=== PATIENT | female | born 1955 | race Caucasian/White ===

== ENCOUNTER 2020-07-21 22:30 | Emergency (ER) | payer MEDICARE, OTHER ==
[2020-07-21] MEDS ORDERED: Diltiazem 25 MG/5 ML SDV IVPUSH ONE (23:21)
[2020-07-22] MEDS ORDERED: Ketorolac 30 MG/ML SDV IVPUSH ONE (00:10)
--- NOTE | 2020-07-22 00:16 | EDM.PDOC ---
ED HPI GENERAL MEDICAL PROBLEM - General Chief Complaint: General Stated Complaint: high bp Time Seen by Provider: 07/21/20 23:00 Source of Information: Reports: Patient History Limitations: Reports: No Limitations - History of Present Illness INITIAL COMMENTS - FREE TEXT/NARRATIVE: c/o inc'd BP pt with gastric bypass surgery 04/30, has lost 40 lbs was on lisinopril, hctz, amlodipine prior to surgery was changed to metoprolol 25 mg/d after surgery, which was inc'd to 25 mg BID by PCP Nandini Jones in the office 4d ago BP has continued to be inc'd, 190/90 in office of chiropractor yesterday, was 184/70 at home this evening BP 196/75 on arrival to ED, did come down to 166/62 after dilt 20 mg IV, HR dec'd 68 to 63 pt with tension WILKINS at R frontal area x 5w, better after the dilt, as the IV had been started, she was additional given Toradol 30 mg IV for the WILKINS pt had ankle edema which was a mild contraindication for restarting the amlodipine, as the diltiazem may help with her WILKINS and should be tolerated in a low dose, it was started as a 2nd med, which may be needed only temporarily as she continues to loss wt there is a component of white coat hypertension altho there is no inc'd risk of running a low BP pt lives with a private investigator, able to check her BP at home, agreed to f/u with her PCP no labs in 2.5m which were checked, renal function wnl, glucose 112 and decreasing headache Pain Score (Numeric/FACES): 6 - Related Data Allergies Allergy/AdvReac Type Severity Reaction Status Date / Time No Known Allergies Allergy Verified 07/21/20 22:52 Home Meds: Home Meds DULoxetine [Cymbalta] 60 mg PO DAILY 07/21/20 [History] Metoprolol Succinate [Toprol XL] 25 mg PO BID 07/21/20 [History] Pravastatin [Pravachol] 40 mg PO DAILY 07/21/20 [History] RABEprazole Sodium [Aciphex] 20 mg PO DAILY 07/21/20 [History] Ustekinumab [Stelara] 90 mg SQ ASDIRECTED 07/21/20 [History] traZODone 75 mg PO BEDTIME 07/21/20 [History] dilTIAZem HCL [Diltiazem 24Hr ER] 120 mg PO DAILY #14 cap.sa.24h 07/22/20 [Rx] Past Medical History Cardiovascular History: Reports: High Cholesterol, Hypertension Gastrointestinal History: Reports: GERD Psychiatric History: Reports: Anxiety, Depression Social & Family History - Tobacco Use Tobacco Use Status *Q: Former Tobacco User Used Tobacco, but Quit: Yes Month/Year Tobacco Last Used: 2019 ED ROS GENERAL - Review of Systems Review Of Systems: See Below Constitutional: Reports: No Symptoms HEENT: Reports: No Symptoms Respiratory: Reports: No Symptoms Cardiovascular: Reports: No Symptoms Endocrine: Reports: No Symptoms GI/Abdominal: Reports: No Symptoms : Reports: No Symptoms Musculoskeletal: Reports: No Symptoms Skin: Reports: No Symptoms Neurological: Reports: Headache Psychiatric: Reports: No Symptoms Hematologic/Lymphatic: Reports: No Symptoms Immunologic: Reports: No Symptoms ED EXAM, GENERAL - Physical Exam Exam: See Below Exam Limited By: No Limitations General Appearance: Alert, WD/WN, Other (mild anxiety) Eye Exam: Bilateral Eye: EOMI, PERRL Nose: Normal Inspection Throat/Mouth: Normal Inspection, Normal Lips, Normal Voice, No Airway Compromise Head: Atraumatic, Normocephalic Neck: Normal Inspection, Supple, Non-Tender, Full Range of Motion Respiratory/Chest: No Respiratory Distress, Lungs Clear, Normal Breath Sounds, No Accessory Muscle Use, Chest Non-Tender Cardiovascular: Normal Peripheral Pulses, Regular Rate, Rhythm, No Murmur, Other (trace pretib edema b/l, symmetric) GI/Abdominal: Soft, Non-Tender Back Exam: Normal Inspection, Full Range of Motion Extremities: Normal Inspection, Normal Range of Motion, Non-Tender Neurological: Alert, Oriented, CN II-XII Intact, Normal Cognition, No Motor/Sensory Deficits Psychiatric: Normal Affect, Normal Mood Skin Exam: Warm, Dry, Intact, Normal Color, No Rash Lymphatic: No Adenopathy Course - Vital Signs Last Recorded V/S: Last Vital Signs Temp 36.6 C 07/21/20 22:30 Pulse 63 07/21/20 23:59 Resp 16 07/21/20 22:30 BP 166/62 H 07/21/20 23:59 Pulse Ox 98 07/21/20 22:30 - Orders/Labs/Meds Orders: Active Orders 24 hr Category Date Time Status Ketorolac [Toradol] Med 07/22/20 00:10 Once 30 mg IVPUSH ONETIME ONE Labs: Laboratory Tests 07/21/20 07/21/20 Range/Units 23:20 23:20 WBC 9.1 (3.0-10.3) x10-3/uL RBC 4.48 (3.60-5.20) x10(6)uL Hgb 12.6 (11.4-15.5) g/dL Hct 39.3 (34.2-48.2) % MCV 87.8 (76.7-100.5) fL MCH 28.1 (23.9-33.9) pg MCHC 32.0 (31.9-34.8) g/dL RDW 15.2 (12.3-16.5) % Plt Count 284 (151-488) x10(3)uL MPV 8.5 (7.1-12.4) fL Neut % (Auto) 44.1 (30.8-76.2) % Lymph % (Auto) 42.2 (18.4-52.1) % Dubois % (Auto) 8.0 (4.4-15.7) % Eos % (Auto) 5.1 (0.6-8.1) % Baso % (Auto) 0.6 (0.2-1.5) % Neut # (Auto) 4.0 (1.5-6.3) x10-3/uL Lymph # (Auto) 3.8 (1.0-4.4) x10-3/uL Dubois # (Auto) 0.7 (0.3-1.0) x10-3/uL Eos # (Auto) 0.5 (0.0-0.8) x10-3/uL Baso # (Auto) 0.1 (0.0-0.1) x10-3/uL Sodium 145 (135-145) mmol/L Potassium 4.1 (3.5-5.3) mmol/L Chloride 106 (100-110) mmol/L Carbon Dioxide 30 (21-32) mmol/L BUN 15 (7-18) mg/dL Creatinine 0.9 (0.55-1.02) mg/dL Est Cr Clr Drug Dosing 51.55 mL/min Estimated GFR (MDRD) > 60 (>60) BUN/Creatinine Ratio 16.7 (9-20) Glucose 112 (80-116) mg/dL Calcium 8.1 L (8.6-10.2) mg/dL Total Bilirubin 0.3 (0.1-1.3) mg/dL AST 63 H (5-25) IU/L ALT 79 H (12-36) U/L Alkaline Phosphatase 117 H (56-112) IU/L Total Protein 6.3 (6.0-8.0) g/dL Albumin 3.3 (3.2-4.6) g/dL Globulin 3.0 g/dL Albumin/Globulin Ratio 1.1 Meds: Medications Discontinued Medications Generic Name Dose Route Start Last Admin Trade Name Freq PRN Reason Stop Dose Admin Diltiazem HCl 20 mg 07/21/20 23:21 07/21/20 23:34 Diltiazem 25 Mg/5 Ml Sdv IVPUSH 07/21/20 23:22 20 mg ONETIME ONE Administration Departure - Departure Time of Disposition: 00:11 Disposition: Home, Self-Care 01 Condition: Good Clinical Impression: Elevated blood pressure reading with diagnosis of hypertension, Tension headache - Discharge Information *PRESCRIPTION DRUG MONITORING PROGRAM REVIEWED*: Not Applicable *COPY OF PRESCRIPTION DRUG MONITORING REPORT IN PATIENT DIMITRI: Not Applicable Prescriptions: dilTIAZem HCL [Diltiazem 24Hr ER] 120 mg PO DAILY #14 cap.sa.24h Instructions: Managing Your Hypertension, Tension Headache, Adult, [id number] Referrals: Crystal Jones NP [Primary Care Provider] - Additional Instructions: Continue metoprolol 25 mg 1 tab 2 times a day. Add diltiazem ED 120 mg 1 tab daily. Check your blood pressure 2 times a day, record the reading, and take with you to your next visit to your PCP. See Nandini Jones in 5 days for further instructions. For headache, continue acetaminophen 325 mg 2 tabs every 4-6 hours as needed. Sepsis Event Note (ED) - Evaluation Sepsis Screening Result: No Definite Risk - Focused Exam Vital Signs: Vital Signs Temp Pulse Resp BP Pulse Ox 07/21/20 23:59 63 166/62 H 07/21/20 23:48 63 165/57 H 07/21/20 23:38 78 154/62 H 07/21/20 23:36 72 165/59 H 07/21/20 23:33 74 173/77 H 07/21/20 22:30 36.6 C 67 16 196/75 H 98 - My Orders Last 24 Hours: My Active Orders 07/22/20 00:10 Ketorolac [Toradol] 30 mg IVPUSH ONETIME ONE - Assessment/Plan Last 24 Hours: My Active Orders 07/22/20 00:10 Ketorolac [Toradol] 30 mg IVPUSH ONETIME ONE
== END 2020-07-22 00:22 | disposition home or self-care (01) ==
LOC: FB.ED 22:30
DX: G44.209 Tension-type headache, unspecified, not intractable (principal); E78.00 Pure hypercholesterolemia, unspecified; I10 Essential (primary) hypertension; K21.9 Gastro-esophageal reflux disease without esophagitis; Z79.899 Other long term (current) drug therapy; Z87.891 Personal history of nicotine dependence
CPT/HCPCS: 36415; 80053; 85025; 96374; 96375; 99283-25; 99284; J1885; J3490